=== PATIENT | male | born 1985 | race Caucasian/White ===

== ENCOUNTER 2017-12-19 09:18 | Emergency (ER) | payer OTHER ==
[2017-12-19 09:32] VITALS: BP 120/68; PULSE 55; TEMP 97.7; BMI 25.7
--- NOTE | 2017-12-19 09:35 | PDOC ---
History of Present Illness - General Stated Complaint: RT JOINT PAIN Time Seen by Provider: 12/19/17 09:32 - History of Present Illness Initial Comments: 12/19/17 09:34 32 yo M with no significant pmh who p/w R shoulder pain s/p mechanical fall. Pt. 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 Reports landing on right outstretched hand, with no clicking or popping sensation felt. Reports clicking of R shoulder in ED when removing sweatshirt. Denies neck/back/head trauma or pain, shoulder deformity, numbness/ tingling, weakness, sensory change, abrasion, bleeding, or skin color change of ext. Denies The patient denies. Denies fever, chills, chest pain, shortness of breath, headache or dizziness, nausea, vomiting, diarrhea and constipation, dysuria, frequency, urgency and hematuria. Past History - Past Medical History Allergies/Adverse Reactions: Allergies Allergy/AdvReac Type Severity Reaction Status Date / Time No Known Allergies Allergy Verified 12/19/17 09:29 Home Medications: Ambulatory Orders Ibuprofen 600 mg PO QID PRN #14 tablet MDD 4 tab 12/19/17 COPD: No - Surgical History Abdominal Surgery: No Appendectomy: No Lung Surgery: No Neurologic Surgery: No - Immunization History Td Vaccination: No TDAP Vaccination: No Immunization Up to Date: Yes - Suicide/Smoking/Psychosocial Hx Smoking History: Never smoked Have you smoked in the past 12 months: No Information on smoking cessation initiated: No Hx Alcohol Use: No Drug/Substance Use Hx: No Substance Use Type: None Review of Systems - Review of Systems Comments:: 12/19/17 09:33 GENERAL/CONSTITUTIONAL: No fever or chills. No weakness. HEAD, EYES, EARS, NOSE AND THROAT: No change in vision. No ear pain or discharge. No sore throat. CARDIOVASCULAR: No chest pain or shortness of breath RESPIRATORY: No cough, wheezing, or hemoptysis. GASTROINTESTINAL: No nausea, vomiting, diarrhea or constipation. GENITOURINARY: No dysuria, frequency, or change in urination. MUSCULOSKELETAL:+ Right shoulder pain/injury. No joint or muscle swelling or pain. No neck or back pain. SKIN: No rash NEUROLOGIC: No headache, vertigo, loss of consciousness, or change in strength/ sensation. ENDOCRINE: No increased thirst. No abnormal weight change HEMATOLOGIC/LYMPHATIC: No anemia, easy bleeding, or history of blood clots. ALLERGIC/IMMUNOLOGIC: No hives or skin allergy. *Physical Exam - Vital Signs Last Vital Signs Temp Pulse Resp BP Pulse Ox 97.7 F 55 L 16 120/68 100 12/19/17 09:22 12/19/17 09:22 12/19/17 09:22 12/19/17 09:22 12/19/17 09:22 - Physical Exam Comments: 12/19/17 09:33 GENERAL: Awake, alert, and fully oriented, in no acute distress HEAD: No signs of trauma, normocephalic, atraumatic EYES: PERRLA, EOMI, sclera anicteric, conjunctiva clear ENT: Hearing grossly normal, nares patent, oropharynx clear without exudates. Moist mucosa NECK: Normal ROM, supple, no lymphadenopathy, JVD, or masses LUNGS: No distress, speaks full sentences, clear to auscultation bilaterally HEART: Regular rate and rhythm, normal S1 and S2, no murmurs, rubs or gallops, peripheral pulses normal and equal bilaterally. EXTREMITIES :Pain with flexion and internal rotation of R shoulder behind back. Pain with shoulder abduction greater than 15 degrees. Absent clicking, popping palpated. Absent bony deformity. Normal inspection, Normal range of motion, no edema. No clubbing or cyanosis. Absent ttp. 5/5 strength throughout BL UE. Absent scaphoid ttp. Absent radial styloid ttp. 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 Reports clicking of R shoulder in ED room when removing sweatshirt. Denies neck/back/ head trauma or pain, shoulder deformity, numbness/ tingling, weakness, sensory change, abrasion, bleeding, or skin color change of ext., fever, chills, chest pain, shortness of breath, headache or dizziness, nausea, vomiting, diarrhea and constipation, dysuria, frequency, urgency and hematuria. Physical exam notable for pain with flexion and internal rotation of R shoulder behind back. Pain with shoulder abduction greater than 15 degrees. Will evaluate for possible R shoulder glenohumeral dislocation vs. fracture of humeral neck. Low suspicion of scaphoid frx. or scapholigmaent injury with 5/5 hand strength, absent scaphoid ttp, swelling, or changes of hand/wrist. Will also consider possible rotator cuff tear vs. other ligamentous or tendinous injury, deltoid injury. DDx. also includes colles fracture, monteggia fracture, gaelazzia fracture. DDx: ED Course: R SHOULDER RAD: No acute fracture or dislocation. 12/19/17 11:22 Naproxen 500 mh 12/19/17 11:27 12/19/17 11:31 Pt. stable and agrees to f/u with his own orthopedic physician. Ibuprofen sent to pharmacy. Ready for d/c with return precautions. *DC/Admit/Observation/Transfer Diagnosis at time of Disposition: Right shoulder injury Qualifiers: Encounter type: initial encounter Qualified Code(s): S49.91XA - Unspecified injury of right shoulder and upper arm, initial encounter - Discharge Dispostion Disposition: HOME Condition at time of disposition: Stable Admit: No - Prescriptions Prescriptions: Ibuprofen 600 mg PO QID PRN #14 tablet MDD 4 tab PRN Reason: Pain Level 1 - 3 - Referrals Referrals: Norris Washington MD [Staff Physician] - Ravi Reddy MD [Staff Physician] - - Patient Instructions Printed Discharge Instructions: DI for Shoulder Pain Additional Instructions: Please return to the emergency department with any new or worsening symptoms or concerns. Please follow up with your primary care physician within 72 hours. Please follow up with orthopedic surgery within one week. Ibruprofen sent to pharmacy. Please take as needed. - Post Discharge Activity - Attestations Physician Attestion: 12/19/17 09:34 I attest to the information provided in this note.
--- NOTE | 2017-12-19 09:42 | PDOC ---
Attending Attestation - Resident Resident Name: Alexis Andradeson - ED Attending Attestation I have performed the following: I have examined & evaluated the patient, The case was reviewed & discussed with the resident, I agree w/resident's findings & plan, Exceptions are as noted - HPI HPI: 12/19/17 11:07 Mr Guerrero is a 32 yo RHD m who presents to the ER with a complaint of right shoulder injury S/p slipping on the snow No head trauma No LOC No amnesia - Physicial Exam PE: 12/19/17 12:20 GENERAL: The patient is in no acute distress. HEAD: Normal with no signs of trauma. EYES: PERRLA, EOMI, sclera anicteric, conjunctiva clear. ENT: Ears normal, nares patent, oropharynx clear without exudates. Moist mucous membranes. NECK: Normal range of motion, supple without lymphadenopathy, JVD, or masses. LUNGS: Breath sounds equal, clear to auscultation bilaterally. No wheezes, and no crackles. HEART:Regular rate and rhythm, normal S1 and S2 without murmur, rub or gallop. ABDOMEN: Soft, nontender EXTREMITIES: Normal range of motion NEUROLOGICAL: Cranial nerves II through XII grossly intact. Normal speech. No focal neurological deficits. MUSCULOSKELETAL: Back non-tender to palpation, no CVA tenderness SKIN: Warm, Dry, normal turgor, no rashes or lesions noted. - Medical Decision Making 12/19/17 12:21 RHD presenting with shoulder injury No weakness No limitations in range of motion XRay Shoulder X ray negative for fracture or dislocation Clinical Impression: shoulder injury, initial presentation
[2017-12-19] MEDS ORDERED: NAPROXEN 500 MG TABLET (FP) PO ONE (11:02)
[2017-12-19] MEDS ORDERED: NAPROXEN 500 MG TABLET (FP) ONE (11:09)
== END 2017-12-19 11:17 | disposition home or self-care (01) ==
LOC: JER 09:18
DX: S49.81XA Other specified injuries of right shoulder and upper arm, initial encounter (principal); W00.0XXA Fall on same level due to ice and snow, initial encounter; Y93.89 Activity, other specified; Y92.89 Other specified places as the place of occurrence of the external cause; Y99.0 Civilian activity done for income or pay
CPT/HCPCS: 73030-TC-RT-FY; 99281-25